=== PATIENT | male | born 1960 | race African-American/Black ===

== ENCOUNTER 2016-12-07 21:49 | Emergency (ER) | payer OTHER ==
[~2016-12-07] VITALS: Ht 172.7 cm; Wt 77.3 kg
[~2016-12-07 21:49] MED LIST: DYRENIUM 50MG C50 MG PO; FLEXERIL5 MG PO; MEDROL 4MG DOSPA4 MG PO; NEURONTIN300 MG/CAP PO; NORVASC 10MG10 MG PO; PERCOCET 325 MG1 TA2 PO; PRINIVIL2.5 MG PO; PROCARDIA10 MG; PROCARDIA10 MG PO; PROSCAR 5MG5 MG PO; TOPROL XL100 MG PO; VALIUM 5MG T5 MG/TAB PO; ZESTRIL40 MG PO; ZOCOR 20MG20 MG PO
[2016-12-07 21:59] VITALS: TEMP 98.3
[2016-12-07] MEDS ORDERED: PRINZIDE 25 MG-1 TAB PO (22:04)
[2016-12-07] MEDS ORDERED: TIROSINT50 MC1 PO (22:05)
[2016-12-07] MEDS ORDERED: PLAVIX 75MG TAB75 MG PO (22:06)
[2016-12-07] MEDS ORDERED: ASPIRIN 81M81 MG/TA2 PO (22:06)
[2016-12-07] MEDS ORDERED: VALIUM 2MG T2 MG/TAB PO (23:15)
[2016-12-07] MEDS ORDERED: PERCOCET 325 MG1 TA3 PO (23:15)
[2016-12-08 00:12] VITALS: BP 125/86; PULSE 74
== END 2016-12-08 00:12 | disposition home or self-care (01) ==
LOC: COL.ER 21:49
DX: I10 Essential (primary) hypertension (principal); M54.16 Radiculopathy, lumbar region; F17.210 Nicotine dependence, cigarettes, uncomplicated

== ENCOUNTER 2017-01-28 21:36 | Emergency (ER) | payer OTHER ==
[~2017-01-28] VITALS: Ht 175.3 cm; Wt 75.0 kg
[~2017-01-28 21:36] MED LIST changes: +ASPIRIN 81M81 MG/TA2 PO; +PERCOCET 325 MG1 TA3 PO; +PLAVIX 75MG TAB75 MG PO; +PRINZIDE 25 MG-1 TAB PO; +TIROSINT50 MC1 PO; +VALIUM 2MG T2 MG/TAB PO
[2017-01-28 21:37] VITALS: BP 131/83; TEMP 97.2
[2017-01-28] MEDS ORDERED: MEDROL 4MG DOSPA4 MG PO (22:20)
[2017-01-28] MEDS ORDERED: NORCO 325 MG-51 TAB PO (22:20)
[2017-01-28] MEDS ORDERED: FLEXERIL 1010 MG/TAB PO (22:20)
[2017-01-28] MEDS ORDERED: PERCOCET 325 MG1 TA2 PO (22:48)
[2017-01-28 22:55] VITALS: PULSE 71
== END 2017-01-28 22:55 | disposition home or self-care (01) ==
LOC: COL.ER 21:36
DX: M54.5 Low back pain (principal); M54.16 Radiculopathy, lumbar region
CPT/HCPCS: J1170; J7512

== ENCOUNTER → 2017-02-11 | Outpatient (CLI) | payer OTHER ==
[~2017-02-11] MED LIST changes: +FLEXERIL 1010 MG/TAB PO; +NORCO 325 MG-51 TAB PO
== END ==
LOC: MHCPAIN 09:06
DX: G89.29 Other chronic pain (principal); M47.27 Other spondylosis with radiculopathy, lumbosacral region; F17.200 Nicotine dependence, unspecified, uncomplicated
CPT/HCPCS: G0463

== ENCOUNTER 2017-02-23 21:43 | Emergency (ER) | payer OTHER ==
[~2017-02-23] VITALS: Ht 175.3 cm; Wt 77.3 kg
[2017-02-23 21:56] VITALS: BP 134/77; TEMP 98.9
[2017-02-23 23:58] VITALS: PULSE 88
== END 2017-02-23 23:58 | disposition home or self-care (01) ==
LOC: COL.ER 21:43
DX: G89.29 Other chronic pain (principal); M54.5 Low back pain; M79.604 Pain in right leg; M79.605 Pain in left leg; I10 Essential (primary) hypertension; F17.210 Nicotine dependence, cigarettes, uncomplicated; Z86.73 Personal history of transient ischemic attack (TIA), and cerebral infarction without residual deficits
CPT/HCPCS: J2270; J2405

== ENCOUNTER 2017-03-09 16:32 | Emergency (ER) | payer OTHER ==
[~2017-03-09] VITALS: Ht 175.3 cm; Wt 77.3 kg
[2017-03-09 16:36] VITALS: BP 128/74; TEMP 98.3
[2017-03-09 17:30] VITALS: PULSE 84
== END 2017-03-09 17:30 | disposition home or self-care (01) ==
LOC: COL.ER 16:32
DX: M79.652 Pain in left thigh (principal); M79.651 Pain in right thigh; M79.662 Pain in left lower leg; M79.661 Pain in right lower leg; M54.5 Low back pain; G89.29 Other chronic pain; I10 Essential (primary) hypertension; Z87.891 Personal history of nicotine dependence